=== PATIENT | male | born 1945 | race Caucasian/White ===

== ENCOUNTER 2020-12-26 10:32 | Emergency (ER) | payer MEDICARE, OTHER ==
[~2020-12-26 10:32] MED LIST: AUGMENTIN 875-1 EACH PO
[2020-12-26 12:34] LABS: HEMOGLOBIN 15.3 gm/dl (14.0-17.5); RED BLOOD COUNT 4.56 M/UL (4.20-5.50); WHITE BLOOD COUNT 13.1 K/UL (4.5-11.0)
[2020-12-26 13:03] LABS: BUN/CREATININE RATIO 27 (0-10)
[2020-12-26] MEDS ORDERED: DOXYCYCLINE HY100 MG PO (15:16)
[2020-12-26] MEDS ORDERED: CEFDINIR300 MG PO (15:16)
[2020-12-26] MEDS ORDERED: PREDNISONE 20 M20 MG PO (15:16)
[2020-12-26] MEDS ORDERED: IPRAT-ALBUT 0.5-3 ML INH (15:28)
== END 2020-12-26 15:36 | disposition home or self-care (01) ==
LOC: ER1 10:32
PROVIDERS: Family Medicine
DX: J18.9 Pneumonia, unspecified organism (principal); J44.1 Chronic obstructive pulmonary disease with (acute) exacerbation; I48.20 Chronic atrial fibrillation, unspecified; R79.89 Other specified abnormal findings of blood chemistry; I11.0 Hypertensive heart disease with heart failure; I50.9 Heart failure, unspecified; Z79.01 Long term (current) use of anticoagulants; Z88.0 Allergy status to penicillin
CPT/HCPCS: 36415; 36600; 71045; 80053; 82550; 82553; 82803; 83605; 83874; 83880; 84484; 85025; 85610; 87040; 93005; 96374; 96375; 99285; J0456; J0696; J2930; J7030

== ENCOUNTER 2021-01-12 16:57 | Inpatient (IN) | payer MEDICARE, OTHER ==
[~2021-01-12] VITALS: Ht 180.3 cm; Wt 59.4 kg
[~2021-01-12 16:57] MED LIST changes: +CEFDINIR300 MG PO; +DOXYCYCLINE HY100 MG PO; +IPRAT-ALBUT 0.5-3 ML INH; +PREDNISONE 20 M20 MG PO
[2021-01-12 18:13] LABS: HEMOGLOBIN 14.3 gm/dl (14.0-17.5); RED BLOOD COUNT 4.33 M/UL (4.20-5.50); WHITE BLOOD COUNT 8.2 K/UL (4.5-11.0)
[2021-01-13] MEDS ORDERED: METOPROLOL TART50 MG PO (01:25)
[2021-01-13] MEDS ORDERED: ATORVASTATIN CA40 MG PO (01:25)
[2021-01-13] MEDS ORDERED: ALLOPURINOL100 MG PO (01:25)
[2021-01-13] MEDS ORDERED: B-1100 MG PO (01:26)
[2021-01-13] MEDS ORDERED: ELIQUIS 5 MG TAB5 MG PO (01:26)
[2021-01-13] MEDS ORDERED: FOLIC ACID 1 MG1 MG PO (01:26)
[2021-01-13] MEDS ORDERED: PREDNISONE10 MG PO (01:27)
[2021-01-13 05:19] LABS: HEMOGLOBIN 13.7 gm/dl (14.0-17.5); RED BLOOD COUNT 4.16 M/UL (4.20-5.50); WHITE BLOOD COUNT 9.2 K/UL (4.5-11.0)
[2021-01-13] MEDS ORDERED: LEVOFLOXACIN500 MG PO (10:41)
[2021-01-13] MEDS ORDERED: PULMICORT0.5 MG/21 INH (10:41)
[2021-01-13] MEDS ORDERED: FUROSEMIDE40 MG PO (10:41)
[2021-01-13] MEDS ORDERED: PREDNISONE 10 M10 MG PO (10:46)
== END 2021-01-13 12:23 | disposition home or self-care (01) | DRG 190 ==
LOC: ER1 16:57 → CDU 20:20 → MED SURG 4 20:20
PROVIDERS: Preventive Medicine Occupational Medicine; ADMIT Internal Medicine
DX: J44.1 Chronic obstructive pulmonary disease with (acute) exacerbation (principal); J18.9 Pneumonia, unspecified organism; J96.10 Chronic respiratory failure, unspecified whether with hypoxia or hypercapnia; I50.9 Heart failure, unspecified; Z20.822 Contact with and (suspected) exposure to COVID-19; I25.10 Atherosclerotic heart disease of native coronary artery without angina pectoris; I48.91 Unspecified atrial fibrillation; Z79.01 Long term (current) use of anticoagulants; N18.30 Chronic kidney disease, stage 3 unspecified; Z88.0 Allergy status to penicillin; Z87.891 Personal history of nicotine dependence; Z85.89 Personal history of malignant neoplasm of other organs and systems; Z80.9 Family history of malignant neoplasm, unspecified; Z99.81 Dependence on supplemental oxygen
CPT/HCPCS: 36415; 36600; 71045; 71250; 80048; 80053; 82803; 83690; 83880; 85025; 85652; 86140; 87040; 93005; 94640; 94760; 96365; 96375; 99285; J1956; J2920; U0002